=== PATIENT | male | born 1950 | race Caucasian/White ===

== ENCOUNTER 2017-08-03 15:04 | Emergency (ER) | payer MEDICARE, BC ==
[2017-08-03 15:08] VITALS: BP 140/87
[2017-08-03] MEDS ORDERED: IV NORMAL SALINE 1,000ML 1,000 ML IV SCH (15:22)
[2017-08-03] MEDS ORDERED: FAMOTIDINE 20 MG/2 ML VIAL IVP ONE (15:30)
[2017-08-03] MEDS ORDERED: diphenhydrAMINE 50 MG/ML VIAL IV ONE (15:30)
[2017-08-03] MEDS ORDERED: methylPREDNISolone SOD SUCC PF 125 MG/2 ML VIAL. IV ONE (15:30)
--- NOTE | 2017-08-03 15:43 | PHYS DOC ---
Adult General Chief Complaint Chief Complaint: ALLERGIC REACTION HPI HPI Patient is a 66 year old male who presents with complaint of facial swelling. Patient states that he was eating a cookie that he did not how had macadamia nuts within it. This took place shortly prior to arrival. Patient states that he started to feel numbness and swelling to his lips and tip of tongue. 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 Patient states that currently his symptoms are not as severe as they were at his previous episode. The patient took Zyrtec at home. Patient states he has an EpiPen but did not use this at home. Patient came to the emergency Department by private vehicle for evaluation. Patient denies any nausea, vomiting, fever, or chest pain. Review of Systems Review of Systems Constitutional: Denies fever or chills [] Eyes: Denies change in visual acuity, redness, or eye pain [] HENT: Facial swelling[] Respiratory: Denies cough or shortness of breath [] Cardiovascular: Denies chest pain or edema[] GI: Denies abdominal pain, nausea, vomiting, bloody stools or diarrhea [] : Denies dysuria or hematuria [] Musculoskeletal: Denies back pain or joint pain [] Integument: Denies rash or skin lesions [] Neurologic: Denies headache, focal weakness or sensory changes [] All other systems were reviewed and found to be within normal limits, except as documented in this note. Current Medications Current Medications Current Medications Medications (Trade) Dose Ordered Sig/Zoya Start Time Stop Time Status Last Admin Dose Admin Diphenhydramine HCl (Benadryl) 25 mg 1X ONCE 08/03/17 15:30 08/03/17 15:36 DC 08/03/17 15:33 25 MG Famotidine (Pepcid Vial) 20 mg 1X ONCE 08/03/17 15:30 08/03/17 15:36 DC 08/03/17 15:34 20 MG Methylprednisolone Sodium Succinate (SOLU-Medrol 125MG VIAL) 125 mg 1X ONCE 08/03/17 15:30 08/03/17 15:36 DC 08/03/17 15:34 125 MG Sodium Chloride 1,000 ml @ 1,000 mls/hr Q1H 08/03/17 15:22 08/03/17 16:21 08/03/17 15:34 1,000 MLS/HR Allergies Allergies Allergies Coded Allergies Type Severity Reaction Last Updated Verified No Known Drug Allergies 08/03/17 No Physical Exam Physical Exam Constitutional: Alert, afebrile, no acute distress. [] HENT: Normocephalic, atraumatic, mild soft tissue swelling to lips, mild erythema periorally, bilateral external ears normal, oropharynx moist, no oral exudates, nose normal. [] Eyes: PERRLA, EOMI, conjunctiva normal, no discharge. [] Neck: Normal range of motion, no tenderness, supple, no stridor. [] Cardiovascular:Heart rate regular rhythm, no murmur [] Lungs & Thorax: Bilateral breath sounds clear to auscultation [] Abdomen: Bowel sounds normal, soft, no tenderness, no masses, no pulsatile masses. [] Skin: Warm, dry, no erythema, no rash. [] Back: No tenderness, no CVA tenderness. [] Extremities: No tenderness, no cyanosis, no clubbing, ROM intact, no edema. [] Neurologic: Alert and oriented X 3, normal motor function, normal sensory function, no focal deficits noted. [] Current Patient Data Vital Signs Vital Signs Date Time Temp Pulse Resp B/P (MAP) Pulse Ox O2 Delivery O2 Flow Rate FiO2 08/03/17 15:08 98.3 84 16 98 Room Air Lab Results Laboratory Tests Test 08/03/17 15:45 White Blood Count 5.1 x10^3/uL Red Blood Count 4.26 x10^6/uL Hemoglobin 13.8 g/dL Hematocrit 39.4 % Mean Corpuscular Volume 93 fL Mean Corpuscular Hemoglobin 32 pg Mean Corpuscular Hemoglobin Concent 35 g/dL Red Cell Distribution Width 13.9 % Platelet Count 177 x10^3/uL Neutrophils (%) (Auto) 51 % Lymphocytes (%) (Auto) 34 % Monocytes (%) (Auto) 8 % Eosinophils (%) (Auto) 6 % Basophils (%) (Auto) 1 % Neutrophils # (Auto) 2.6 x10^3uL Lymphocytes # (Auto) 1.7 x10^3/uL Monocytes # (Auto) 0.4 x10^3/uL Eosinophils # (Auto) 0.3 x10^3/uL Basophils # (Auto) 0.1 x10^3/uL Sodium Level 143 mmol/L Potassium Level 4.1 mmol/L Chloride Level 108 mmol/L Carbon Dioxide Level 27 mmol/L Anion Gap 8 Blood Urea Nitrogen 19 mg/dL Creatinine 0.9 mg/dL Estimated GFR (Cockcroft-Gault) 83.9 Glucose Level 126 mg/dL Calcium Level 9.0 mg/dL Current Medications Medications (Trade) Dose Ordered Sig/Zoya Route PRN Reason Start Time Stop Time Status Last Admin Dose Admin Methylprednisolone Sodium Succinate (SOLU-Medrol 125MG VIAL) 125 mg 1X ONCE IV 08/03/17 15:30 08/03/17 15:36 DC 08/03/17 15:34 Diphenhydramine HCl (Benadryl) 25 mg 1X ONCE IV 08/03/17 15:30 08/03/17 15:36 DC 08/03/17 15:33 Famotidine (Pepcid Vial) 20 mg 1X ONCE IVP 08/03/17 15:30 08/03/17 15:36 DC 08/03/17 15:34 Sodium Chloride 1,000 ml @ 1,000 mls/hr Q1H IV 08/03/17 15:22 08/03/17 16:21 DC 08/03/17 15:34 EKG EKG Not performed[] Radiology/Procedures Radiology/Procedures Not performed[] Course & Med Decision Making Course & Med Decision Making Pertinent Labs and Imaging studies reviewed. (See chart for details) Patient was given IV Benadryl, Pepcid, and Solu-Medrol. Patient observed in the emergency department with good control symptoms. Patient states he is feeling better at this time and would like to go home. The patient will continue on Medrol Dosepak and Benadryl for outpatient treatment. Advise follow-up in 3-5 days a primary doctor for reevaluation and return emergency department for any worsening symptoms. Patient voiced understanding and in agreement with treatment plan. Dragon Disclaimer Dragon Disclaimer This electronic medical record was generated, in whole or in part, using a voice recognition dictation system. Departure Departure: Impression: Primary Impression: Allergic reaction to food Disposition: HOME, SELF-CARE Condition: IMPROVED Referrals: LILLIE VALENCIA MD (PCP) Patient Instructions: Food Allergy and Anaphylaxis Additional Instructions: Follow-up with your primary doctor in 3-5 days for reevaluation. Return to emergency department for any worsening symptoms. Scripts Epinephrine (Epipen) 0.3 Mg/0.3 Ml Auto.injct 0.3 MG IJ 1X Y for ANAPHYLAXIS, #1 SYR 1 Refill Prov: EMILY PEREZ MD 08/03/17 Methylprednisolone (MEDROL) 4 Mg Tab.ds.pk 1 PKG PO UD, #1 PKG Prov: EMILY PEREZ MD 08/03/17 Problem Qualifiers Primary Impression: Allergic reaction to food Encounter type: initial encounter Qualified Codes: T78.1XXA - Other adverse food reactions, not elsewhere classified, initial encounter EMILY PEREZ MD Aug 03, 2017 15:43
[2017-08-03 16:12] LABS: BASO # 0.1 x10^3/uL (0.0-0.2); BASO % 1 % (0-3); EOS # 0.3 x10^3/uL (0.0-0.7); EOS % 6 % (0-3); HEMATOCRIT 39.4 % (39.0-53.0); HEMOGLOBIN 13.8 g/dL (13.0-17.5); LYMPH # 1.7 x10^3/uL (1.0-4.8); LYMPH % 34 % (24-48); MEAN CORPUSCULAR HEMOGLOBIN 32 pg (25-35); MEAN CORPUSCULAR HGB CONC 35 g/dL (31-37); MEAN CORPUSCULAR VOLUME 93 fL (79-100); MONO # 0.4 x10^3/uL (0.0-1.1); MONO % 8 % (0-9); NEUT # 2.6 x10^3uL (1.8-7.7); NEUT % 51 % (31-73); PLATELET COUNT 177 x10^3/uL (140-400); RED BLOOD COUNT 4.26 x10^6/uL (4.30-5.70); RED CELL DISTRIBUTION WIDTH 13.9 % (11.5-14.5); WHITE BLOOD COUNT 5.1 x10^3/uL (4.0-11.0)
[2017-08-03 16:20] LABS: CREATININE 0.9 mg/dL (0.7-1.3); GFR 83.9; POTASSIUM 4.1 mmol/L (3.5-5.1)
[2017-08-03] MEDS ORDERED: EPIN0.3A3 IJ (16:38)
[2017-08-03] MEDS ORDERED: METH4TAB2 PO (16:38)
== END 2017-08-03 16:53 | disposition home or self-care (01) ==
LOC: ER 15:04
DX: T78.1XXA Other adverse food reactions, not elsewhere classified, initial encounter (principal); X58.XXXA Exposure to other specified factors, initial encounter
CPT/HCPCS: 36415; 80048; 85025; 96361; 96374; 96375; 99284; J1200; J2930; S0028; J7030

== ENCOUNTER → 2018-11-25 | Outpatient (CLI) | payer MEDICARE, BC ==
[~2018-11-25] MED LIST: EPIN0.3A3 IJ; METH4TAB2 PO
== END | disposition home or self-care (01) ==
LOC: LAB 15:01
PROVIDERS: ATTEND Urology
DX: Z12.5 Encounter for screening for malignant neoplasm of prostate (principal)
CPT/HCPCS: G0103

== ENCOUNTER 2019-03-20 18:50 | Emergency (ER) | payer MEDICARE, BC ==
[~2019-03-20] VITALS: Ht 188 cm; Wt 80.1 kg
[2019-03-20] MEDS ORDERED: IV RINGERS SOLUTION,LACTATED 1,000 ML IV SCH (20:20)
[2019-03-20] MEDS ORDERED: MORPHINE SULFATE 10 MG/ML SYRINGE. SQ ONE (20:30)
[2019-03-20] MEDS ORDERED: FAMOTIDINE 20 MG/2 ML VIAL IVP ONE (20:30)
[2019-03-20] MEDS ORDERED: ONDANSETRON PF 4 MG/2 ML VIAL. IV ONE (20:30)
[2019-03-20 21:06] LABS: BASO % 0 % (0-3); EOS # 0.1 x10^3/uL (0.0-0.7); EOS % 2 % (0-3); HEMATOCRIT 46.5 % (39.0-53.0); HEMOGLOBIN 15.6 g/dL (13.0-17.5); LYMPH # 0.6 x10^3/uL (1.0-4.8); LYMPH % 14 % (24-48); MEAN CORPUSCULAR HEMOGLOBIN 32 pg (25-35); MEAN CORPUSCULAR HGB CONC 33 g/dL (31-37); MEAN CORPUSCULAR VOLUME 96 fL (79-100); MONO # 0.3 x10^3/uL (0.0-1.1); MONO % 7 % (0-9); NEUT # 3.1 x10^3uL (1.8-7.7); NEUT % 77 % (31-73); PLATELET COUNT 149 x10^3/uL (140-400); RED BLOOD COUNT 4.87 x10^6/uL (4.30-5.70)
[2019-03-20 21:15] LABS: ALBUMIN 3.7 g/dL (3.4-5.0); CREATININE 1.1 mg/dL (0.7-1.3); DIRECT BILIRUBIN 0.2 mg/dL (0.0-0.2); GFR 66.2; POTASSIUM 4.2 mmol/L (3.5-5.1); TOTAL BILIRUBIN 0.5 mg/dL (0.2-1.0); TOTAL PROTEIN 7.2 g/dL (6.4-8.2)
--- NOTE | 2019-03-20 21:50 | RAD ---
Exam: Acute abdominal series INDICATION: Abdominal pain and diarrhea TECHNIQUE: Frontal view of the chest with upright and supine views of the abdomen Comparisons: None FINDINGS: Air and stool are seen throughout the colon to the level of the rectum in a nonobstructive bowel gas pattern. Amorphous calcific density seen within the left hemiabdomen. Surgical clips at the pelvis. IMPRESSION: 1. Amorphous calcific density noted within the left hemiabdomen which is of uncertain etiology. This may relate to ingested contents however recommend CT without oral contrast for further evaluation. 2. Nonobstructive bowel gas pattern. Electronically signed by: eNlda Shaikh MD (03/20/2019 9:47 PM) [facility]
[2019-03-20 21:54] VITALS: BP 136/71
--- NOTE | 2019-03-20 22:27 | ED.ADGEN ---
Past History Past Medical History: Cancer, Hypertension, Other Past Surgical History: Tonsillectomy, Other Alcohol Use: Heavy Drug Use: None Adult General Chief Complaint Chief Complaint "...I ve had diarrhea constant the last two days... cramping.. .I get episodes like this... I do have a follow up apt. with Dr. Chambers HPI HPI Patient is a 68 year old male retired who presents with complaints of diarrhea that has been constant the last 2 days. No history intake of bad food. No history of recent travel. No history immunosuppression. No History recent antibiotics. No history of specific ill contacts. Patient does have some generalized abdomen pain and cramping. Stools have been watery. No obvious b lood. No history of family inflammatory bowel disorders. Patient is to have a colonoscopy this coming week with Dr. Chambers. Patient does have a history of prostate cancer and surgery. Review of Systems Review of Systems Constitutional: Denies fever or chills [] Eyes: Denies change in visual acuity, redness, or eye pain [] HENT: Denies nasal congestion or sore throat [] Respiratory: Denies cough or shortness of breath [] Cardiovascular: No additional information not addressed in HPI [] GI: Complaints of generalized abdominal pain, nausea, . Denies Vomiting, bloody stools . Complaints of diarrhea to many times to count the past 2 days : Denies dysuria or hematuria [] Musculoskeletal: Denies back pain or joint pain [] Integument: Denies rash or skin lesions [] Neurologic: Denies headache, focal weakness or sensory changes [] Endocrine: Denies polyuria or polydipsia [] All other systems were reviewed and found to be within normal limits, except as documented in this note. Family History Family History Noncontributory Current Medications Current Medications Current Medications Medications (Trade) Dose Ordered Sig/Zoya Start Time Stop Time Status Last Admin Dose Admin Famotidine (Pepcid Vial) 20 mg 1X ONCE 03/20/19 20:30 03/20/19 20:31 DC 03/20/19 21:14 20 MG Lactated Ringer's 1,000 ml @ 1,000 mls/hr Q1H 03/20/19 20:20 03/20/19 21:19 DC 03/20/19 21:12 1,000 MLS/HR Metronidazole (Flagyl) 500 mg 1X ONCE 03/21/19 00:15 03/21/19 00:16 DC 03/21/19 00:11 500 MG Morphine Sulfate (Morphine 10mg Syringe) 10 mg 1X ONCE 03/20/19 20:30 03/20/19 20:31 DC 03/20/19 21:19 10 MG Ondansetron HCl (Zofran) 8 mg 1X ONCE 03/20/19 20:30 03/20/19 20:31 DC 03/20/19 21:16 8 MG Allergies Allergies Allergies Coded Allergies Type Severity Reaction Last Updated Verified No Known Drug Allergies 08/03/17 No Physical Exam Physical Exam Constitutional: Well developed, well nourished,in moderate acute distress, non- toxic appearance. [] HENT: Normocephalic, atraumatic, bilateral external ears normal, oropharynx moist, no oral exudates, nose normal. [] Eyes: PERRLA, EOMI, conjunctiva normal, no discharge. [] Neck: Normal range of motion, no tenderness, supple, no stridor. [] Cardiovascular:Heart rate regular rhythm, no murmur [] Lungs & Thorax: Bilateral breath sounds clear equal at apex on auscultation [] Abdomen: Bowel sounds hyperactive, soft, generalized tenderness, no masses, no pulsatile masses. [] Old surgery scars. No focal areas of rebound Skin: Warm, dry, no erythema, no rash. [] Back: No tenderness, no CVA tenderness. [] Extremities: No tenderness, no cyanosis, no clubbing, ROM intact, no edema. [] No psoas sign. Neurologic: Alert and oriented X 3, normal motor function, normal sensory function, no focal deficits noted. [] Psychologic: Affect anxious, judgement normal, mood normal. [] Current Patient Data Vital Signs Vital Signs Date Time Temp Pulse Resp B/P (MAP) Pulse Ox O2 Delivery O2 Flow Rate FiO2 03/20/19 21:54 76 16 136/71 (92) 97 Room Air 03/20/19 19:50 98.4 Lab Results Laboratory Tests Test 03/20/19 20:40 03/20/19 22:05 White Blood Count 4.0 x10^3/uL (4.0-11.0) Red Blood Count 4.87 x10^6/uL (4.30-5.70) Hemoglobin 15.6 g/dL (13.0-17.5) Hematocrit 46.5 % (39.0-53.0) Mean Corpuscular Volume 96 fL (79-100) Mean Corpuscular Hemoglobin 32 pg (25-35) Mean Corpuscular Hemoglobin Concent 33 g/dL (31-37) Red Cell Distribution Width 14.0 % (11.5-14.5) Platelet Count 149 x10^3/uL (140-400) Neutrophils (%) (Auto) 77 % (31-73) H Lymphocytes (%) (Auto) 14 % (24-48) L Monocytes (%) (Auto) 7 % (0-9) Eosinophils (%) (Auto) 2 % (0-3) Basophils (%) (Auto) 0 % (0-3) Neutrophils # (Auto) 3.1 x10^3uL (1.8-7.7) Lymphocytes # (Auto) 0.6 x10^3/uL (1.0-4.8) L Monocytes # (Auto) 0.3 x10^3/uL (0.0-1.1) Eosinophils # (Auto) 0.1 x10^3/uL (0.0-0.7) Basophils # (Auto) 0.0 x10^3/uL (0.0-0.2) Prothrombin Time 10.7 SEC (9.4-11.4) Prothrombin Time INR 1.0 (0.9-1.1) PTT 25 SEC (23-33) Sodium Level 135 mmol/L (136-145) L Potassium Level 4.2 mmol/L (3.5-5.1) Chloride Level 101 mmol/L (98-107) Carbon Dioxide Level 28 mmol/L (21-32) Anion Gap 6 (6-14) Blood Urea Nitrogen 18 mg/dL (8-26) Creatinine 1.1 mg/dL (0.7-1.3) Estimated GFR (Cockcroft-Gault) 66.2 Glucose Level 105 mg/dL (70-99) H Calcium Level 9.0 mg/dL (8.5-10.1) Total Bilirubin 0.5 mg/dL (0.2-1.0) Direct Bilirubin 0.2 mg/dL (0.0-0.2) Aspartate Amino Transferase (AST) 27 U/L (15-37) Alanine Aminotransferase (ALT) 36 U/L (16-63) Alkaline Phosphatase 118 U/L (46-116) H Total Protein 7.2 g/dL (6.4-8.2) Albumin 3.7 g/dL (3.4-5.0) Amylase Level 43 U/L (25-115) Lipase 119 U/L (73-393) Urine Collection Type Unknown Urine Color Yellow Urine Clarity Clear Urine pH 5.5 Urine Specific [place] 1.010 Urine Protein Neg (NEG-TRACE) Urine Glucose (UA) Neg mg/dL (NEG) Urine Ketones (Stick) Trace mg/dL (NEG) Urine Blood Neg (NEG) Urine Nitrite Neg (NEG) Urine Bilirubin Neg (NEG) Urine Urobilinogen Dipstick 0.2 mg/dL (0.2 mg/dL) Urine Leukocyte Esterase Neg (NEG) Urine RBC 0 /HPF (0-2) Urine WBC Occ /HPF (0-4) Urine Squamous Epithelial Cells Occ /LPF Urine Bacteria 0 /HPF (0-FEW) Urine Mucus Slight /LPF EKG EKG [] Radiology/Procedures Radiology/[place] [address] IMAGING REPORT Signed PATIENT: SUNNI RIVAS ACCOUNT: [id number] : 1950 LOCATION: ER AGE: 68 SEX: M EXAM STATUS: REG ER ORD. PHYSICIAN: ROXANN RODGERS MD REASON: Calcification left hemiabdomen per xrays PROCEDURE: CT ABDOMEN PELVIS WO CONTRAST INDICATION: Calcification within the abdomen with abdomen pain COMPARISON: Plain film from earlier secondary TECHNIQUE: Axial CT images obtained through the abdomen and pelvis without contrast. One or more of the following individualized dose reduction techniques were utilized for this examination: 1. Automated exposure control; 2. Adjustment of the mA and/or kV according to patient size; 3. Use of iterative reconstruction technique. FINDINGS: Patchy opacities at the lung bases dependently. Fat-containing left inguinal hernia. Plaque is seen within the vasculature. No intrahepatic bile duct dilation. Limited evaluation of the pancreas without contrast. There is some haziness within the mesentery at the upper abdomen with prominent lymph nodes in the area. Spleen unremarkable. There are some high density material within the stomach. No left-sided hydronephrosis. Urinary bladder has minimal urine within it with some prominence of the wall. No right-sided hydronephrosis. There is also some mild haziness to the fat in the right lower quadrant. The appendix does not appear grossly inflamed. Degenerative changes the spine with multilevel central canal neural foraminal stenosis. IMPRESSION: 1. There is some haziness to the mesentery in the left-sided the abdomen with prominent lymph nodes in the region. Nonspecific appearance but can be seen with causes such as mesenteric paniculitis. 2. There is also some mild haziness in the right lower quadrant adjacent to some small bowel loops. This is a mild finding however would correlate with symptoms in the region to ensure that there is not a pathologic cause such as early enteritis. 3. There is also some prominence the wall of the urinary bladder. Urinary bladder is not very distended in a portion this is likely secondary to lack of distention but would correlate for symptoms in the region to ensure that there is not cystitis contributing to this appearance. 4. High density contents are seen within the stomach. Electronically signed by: Alexis Live MD (03/20/2019 11:33 PM) [facility] DICTATED AND SIGNED BY: ALEXIS LIVE MD DATE: 03/20/192332 CC: ROXANN RODGERS MD; LILLIE VALENCIA MD ~ IMAGING REPORT Signed PATIENT: SUNNI RIVAS ACCOUNT: [id number] : 1950 LOCATION: ER AGE: 68 SEX: M EXAM STATUS: REG ER ORD. PHYSICIAN: ROXANN RODGERS MD REASON: Abd pain, diarrhea PROCEDURE: ACUTE ABDOMEN SERIES Exam: Acute abdominal series INDICATION: Abdominal pain and diarrhea TECHNIQUE: Frontal view of the chest with upright and supine views of the abdomen Comparisons: None FINDINGS: Air and stool are seen throughout the colon to the level of the rectum in a nonobstructive bowel gas pattern. Amorphous calcific density seen within the left hemiabdomen. Surgical clips at the pelvis. IMPRESSION: 1. Amorphous calcific density noted within the left hemiabdomen which is of uncertain etiology. This may relate to ingested contents however recommend CT without oral contrast for further evaluation. 2. Nonobstructive bowel gas pattern. Electronically signed by: Nelda Baez MD (03/20/2019 9:47 PM) [facility] DICTATED AND SIGNED BY: NELDA BAEZ MD DATE: 03/20/192146 CC: ROXANN RODGERS MD; LILLIE VALENCIA MD ~ [][address] [address] IMAGING REPORT Signed PATIENT: SUNNI RIVAS ACCOUNT: [id number] : 1950 LOCATION: ER AGE: 68 SEX: M EXAM STATUS: REG ER ORD. PHYSICIAN: ROXANN RODGERS MD REASON: Abd pain, diarrhea PROCEDURE: ACUTE ABDOMEN SERIES Exam: Acute abdominal series INDICATION: Abdominal pain and diarrhea TECHNIQUE: Frontal view of the chest with upright and supine views of the abdomen Comparisons: None FINDINGS: Air and stool are seen throughout the colon to the level of the rectum in a nonobstructive bowel gas pattern. Amorphous calcific density seen within the left hemiabdomen. Surgical clips at the pelvis. IMPRESSION: 1. Amorphous calcific density noted within the left hemiabdomen which is of uncertain etiology. This may relate to ingested contents however recommend CT without oral contrast for further evaluation. 2. Nonobstructive bowel gas pattern. Electronically signed by: Nelda Baez MD (03/20/2019 9:47 PM) [facility] DICTATED AND SIGNED BY: NELDA BAEZ MD DATE: 03/20/192146 CC: ROXANN RODGERS MD; LILLIE VALENCIA MD ~ Course & Med Decision Making Course & Med Decision Making Pertinent Labs and Imaging studies reviewed. (See chart for details) Patient to stay on a clear fluid diet for the next 2 days. No solids or milk products. Take Zofran for nausea or if he develops vomiting. Return if any concerns. Take Flagyl 500 mg 3 times a day. Follow-up stool cultures. Keep follow-up with Dr.Vasa- GI and primary. [] Final Impression Final Impression 1. Abdomen pain 2. Lewsi mesenteric adenitis 3. Diarrhea Dragon Disclaimer Dragon Disclaimer This electronic medical record was generated, in whole or in part, using a voice recognition dictation system. Discharge Summary Visit Information Final Diagnosis Problems Medical Problems: (1) Mesenteric adenitis Status: Acute Brief Hospital Course Allergies Allergies Coded Allergies Type Severity Reaction Last Updated Verified No Known Drug Allergies 08/03/17 No Vital Signs Vital Signs Date Time Temp Pulse Resp B/P (MAP) Pulse Ox O2 Delivery O2 Flow Rate FiO2 03/20/19 21:54 76 16 136/71 (92) 97 Room Air 03/20/19 19:50 98.4 Lab Results Laboratory Tests Test 03/20/19 20:40 03/20/19 22:05 White Blood Count 4.0 x10^3/uL (4.0-11.0) Red Blood Count 4.87 x10^6/uL (4.30-5.70) Hemoglobin 15.6 g/dL (13.0-17.5) Hematocrit 46.5 % (39.0-53.0) Mean Corpuscular Volume 96 fL (79-100) Mean Corpuscular Hemoglobin 32 pg (25-35) Mean Corpuscular Hemoglobin Concent 33 g/dL (31-37) Red Cell Distribution Width 14.0 % (11.5-14.5) Platelet Count 149 x10^3/uL (140-400) Neutrophils (%) (Auto) 77 % (31-73) Lymphocytes (%) (Auto) 14 % (24-48) Monocytes (%) (Auto) 7 % (0-9) Eosinophils (%) (Auto) 2 % (0-3) Basophils (%) (Auto) 0 % (0-3) Neutrophils # (Auto) 3.1 x10^3uL (1.8-7.7) Lymphocytes # (Auto) 0.6 x10^3/uL (1.0-4.8) Monocytes # (Auto) 0.3 x10^3/uL (0.0-1.1) Eosinophils # (Auto) 0.1 x10^3/uL (0.0-0.7) Basophils # (Auto) 0.0 x10^3/uL (0.0-0.2) Prothrombin Time 10.7 SEC (9.4-11.4) Prothromb Time International Ratio 1.0 (0.9-1.1) Activated Partial Thromboplast Time 25 SEC (23-33) Sodium Level 135 mmol/L (136-145) Potassium Level 4.2 mmol/L (3.5-5.1) Chloride Level 101 mmol/L (98-107) Carbon Dioxide Level 28 mmol/L (21-32) Anion Gap 6 (6-14) Blood Urea Nitrogen 18 mg/dL (8-26) Creatinine 1.1 mg/dL (0.7-1.3) Estimated GFR (Cockcroft-Gault) 66.2 Glucose Level 105 mg/dL (70-99) Calcium Level 9.0 mg/dL (8.5-10.1) Total Bilirubin 0.5 mg/dL (0.2-1.0) Direct Bilirubin 0.2 mg/dL (0.0-0.2) Aspartate Amino Transf (AST/SGOT) 27 U/L (15-37) Alanine Aminotransferase (ALT/SGPT) 36 U/L (16-63) Alkaline Phosphatase 118 U/L (46-116) Total Protein 7.2 g/dL (6.4-8.2) Albumin 3.7 g/dL (3.4-5.0) Amylase Level 43 U/L (25-115) Lipase 119 U/L (73-393) Urine Collection Type Unknown Urine Color Yellow Urine Clarity Clear Urine pH 5.5 Urine Specific [place] 1.010 Urine Protein Neg (NEG-TRACE) Urine Glucose (UA) Neg mg/dL (NEG) Urine Ketones (Stick) Trace mg/dL (NEG) Urine Blood Neg (NEG) Urine Nitrite Neg (NEG) Urine Bilirubin Neg (NEG) Urine Urobilinogen Dipstick 0.2 mg/dL (0.2 mg/dL) Urine Leukocyte Esterase Neg (NEG) Urine RBC 0 /HPF (0-2) Urine WBC Occ /HPF (0-4) Urine Squamous Epithelial Cells Occ /LPF Urine Bacteria 0 /HPF (0-FEW) Urine Mucus Slight /LPF Brief Hospital Course Mr. Rivas is a 68 old male who presented with diarrhea and abdomen pain the last two days. Discharge Information Condition at Discharge: Improved, Stable Disposition/Orders: D/C to Home Dischare Medications Current Medications Lactated Ringer's 1,000 ml @ 1,000 mls/hr Q1H IV Last administered on 03/20/19at 21:12; Admin Dose 1,000 MLS/HR; Start 03/20/19 at 20:20; Stop 03/20/19 at 21:19; Status DC Ondansetron HCl (Zofran) 8 mg 1X ONCE IV Last administered on 03/20/19at 21:16; Admin Dose 8 MG; Start 03/20/19 at 20:30; Stop 03/20/19 at 20:31; Status DC Famotidine (Pepcid Vial) 20 mg 1X ONCE IVP Last administered on 03/20/19at 21:14; Admin Dose 20 MG; Start 03/20/19 at 20:30; Stop 03/20/19 at 20:31; Status DC Morphine Sulfate (Morphine 10mg Syringe) 10 mg 1X ONCE SQ Last administered on 03/20/19at 21:19; Admin Dose 10 MG; Start 03/20/19 at 20:30; Stop 03/20/19 at 20:31; Status DC Metronidazole (Flagyl) 500 mg 1X ONCE PO ; Start 03/21/19 at 00:30; Stop 03/21/19 at 00:30; Status DC Metronidazole (Flagyl) 500 mg 1X ONCE PO Last administered on 03/21/19at 00:11; Admin Dose 500 MG; Start 03/21/19 at 00:15; Stop 03/21/19 at 00:16; Status DC Active Scripts Active Percocet 5-325 Mg Tablet (Oxycodone Hcl/Acetaminophen) 1 Each Tablet 1 Tab PO PRN Q6HRS PRN Flagyl (Metronidazole) 500 Mg Tablet 500 Mg PO TID 10 Days Zofran (Ondansetron Hcl) 8 Mg Tablet 8 Mg PO QIDPRN PRN Epipen (Epinephrine) 0.3 Mg/0.3 Ml Auto.injct 0.3 Mg IJ 1X PRN Medrol (Methylprednisolone) 4 Mg Tab.ds.pk 1 Pkg PO UD Dragon Disclaimer This chart was dictated in whole or in part using Voice Recognition software in a busy, high-work load, and often noisy Emergency Department environment. It may contain unintended and wholly unrecognized errors or omissions. ROXANN RODGERS MD Mar 20, 2019 22:27
[2019-03-20 23:12] LABS: BILIRUBIN,URINE NEG (NEG); CLARITY,URINE CLEAR; COLOR,URINE YELLOW; GLUCOSE,URINE NEG (NEG)
[2019-03-20 23:13] LABS: BACTERIA,URINE 0 /HPF (0-FEW); NITRITE,URINE NEG (NEG); RBC,URINE 0 /HPF (0-2); SQUAMOUS EPITHELIAL CELL,UR OCC /LPF; UROBILINOGEN,URINE 0.2 mg/dL (0.2 mg/dL); WBC,URINE OCC /HPF (0-4)
--- NOTE | 2019-03-20 23:36 | RAD ---
INDICATION: Calcification within the abdomen with abdomen pain COMPARISON: Plain film from earlier secondary TECHNIQUE: Axial CT images obtained through the abdomen and pelvis without contrast. One or more of the following individualized dose reduction techniques were utilized for this examination: 1. Automated exposure control; 2. Adjustment of the mA and/or kV according to patient size; 3. Use of iterative reconstruction technique. FINDINGS: Patchy opacities at the lung bases dependently. Fat-containing left inguinal hernia. Plaque is seen within the vasculature. No intrahepatic bile duct dilation. Limited evaluation of the pancreas without contrast. There is some haziness within the mesentery at the upper abdomen with prominent lymph nodes in the area. Spleen unremarkable. There are some high density material within the stomach. No left-sided hydronephrosis. Urinary bladder has minimal urine within it with some prominence of the wall. No right-sided hydronephrosis. There is also some mild haziness to the fat in the right lower quadrant. The appendix does not appear grossly inflamed. Degenerative changes the spine with multilevel central canal neural foraminal stenosis. IMPRESSION: 1. There is some haziness to the mesentery in the left-sided the abdomen with prominent lymph nodes in the region. Nonspecific appearance but can be seen with causes such as mesenteric paniculitis. 2. There is also some mild haziness in the right lower quadrant adjacent to some small bowel loops. This is a mild finding however would correlate with symptoms in the region to ensure that there is not a pathologic cause such as early enteritis. 3. There is also some prominence the wall of the urinary bladder. Urinary bladder is not very distended in a portion this is likely secondary to lack of distention but would correlate for symptoms in the region to ensure that there is not cystitis contributing to this appearance. 4. High density contents are seen within the stomach. Electronically signed by: Alberto Live MD (03/20/2019 11:33 PM) [id number]
[2019-03-20] MEDS ORDERED: METR500T PO (23:59)
[2019-03-20] MEDS ORDERED: OXYC1TAB15 PO (23:59)
[2019-03-20] MEDS ORDERED: ONDA8TAB9 PO (23:59)
[2019-03-21] MEDS ORDERED: metroNIDAZOLE 500 MG TABLET PO ONE ×2 (00:15→00:30)
== END 2019-03-21 00:22 | disposition home or self-care (01) ==
LOC: ER 18:50
DX: I88.0 Nonspecific mesenteric lymphadenitis (principal); R19.7 Diarrhea, unspecified; I10 Essential (primary) hypertension; F10.20 Alcohol dependence, uncomplicated; Y90.9 Presence of alcohol in blood, level not specified
CPT/HCPCS: 36415; 74022; 74176; 80048; 80076; 81001; 82150; 83690; 85025; 85610; 85730; 87045; 87493; 96361; 96372; 96374; 96375; 99285; J2270; J2405; J3490; J7120

== ENCOUNTER → 2020-11-29 | Outpatient (CLI) | payer MEDICARE, BC ==
[~2020-11-29] MED LIST changes: +METR500T PO; +ONDA8TAB9 PO; +OXYC1TAB15 PO
== END ==
LOC: LAB 14:19
PROVIDERS: ATTEND Urology
DX: C61 Malignant neoplasm of prostate (principal)
CPT/HCPCS: 84153; G0103

== ENCOUNTER → 2021-04-30 | Outpatient (CLI) | payer MEDICARE, BC ==
--- NOTE | 2021-04-30 10:33 | RAD ---
AP, lateral, and oblique views of the left hand were performed. History: Third digit laceration Comparison: none. No fracture or dislocation is seen. The joint spaces are normal in appearance. No significant soft tissue swelling is seen. Impression: 1. Negative exam of the left hand. No radiopaque foreign body. Electronically signed by: Kedar Zeng MD (04/30/2021 10:31 AM) [id number]
== END ==
LOC: RAD 10:11
PROVIDERS: ATTEND Nurse Practitioner Family
DX: S69.92XA Unspecified injury of left wrist, hand and finger(s), initial encounter (principal); X58.XXXA Exposure to other specified factors, initial encounter; Y93.89 Activity, other specified; Y92.89 Other specified places as the place of occurrence of the external cause; Y99.8 Other external cause status
CPT/HCPCS: 73130